=== PATIENT | female | born 1945 | race Caucasian/White ===

== ENCOUNTER 2016-07-29 21:39 | Emergency (ER) | payer MEDICARE ==
[2016-07-29 21:46] VITALS: BP 137/77; PULSE 101; RESP 19; O2SAT 95
--- NOTE | 2016-07-29 22:04 | ED.REPORT ---
HPI-Neurologic Deficit Date of Service Jul 29, 2016 ED Provider: Ryan Agudelo MD The patient is a 71 year old female w/ a hx of multiple strokes and MS who presents to the ED due to trouble talking for the past 3 hours. She is accompanied by her two daughters who report that she was repeating the same phrases over and over again to questions. She was having different emotional responses that were contrary to the question asked. She was having difficulty coming up with specific words. She has been sleeping excessively and complaining of a constant headache. Patient confirms cough. She denies fever, shaking, chills, nausea, vomiting, dysuria or any other symptoms. Patient says that nothing is wrong with her, she is just "tired." Nursing Notes Stated Complaint: HEADACHE, CONFUSION Chief Complaint: Stroke Symptoms Nursing Notes Reviewed: Yes Allergies: Coded Allergies: hydromorphone (Verified Allergy, Mild, 07/29/16) Scheduled Cephalexin (Cephalexin) 500 Mg Capsule 500 MG PO QID General Time Seen by Provider: 22:15 Chief Complaint Other (change in speech) Hx Obtained From: Patient, Daughter Arrived By: Walk-in Sudden in Onset?: Yes Onset Occurred: 1 - 4 hours ago Symptom Duration: Since onset Progression Since Onset: Gradually worsening Severity: Current: No pain currently Recent Healthcare: No recent doctor visit, No recent hospitalization Similar Sx Previous: No Risk Factors Risk Notes: extraocular movements intact NIH Stroke Scale Level of Consciousness: Alert and responsive (0) Ask Month & Age: Both questions right (0) Open/Close Eyes/Hand Principal Solutions Architect: Performs both tasks (0) Horizontal EO Movements: None (0) Visual Lopez: No visual loss (0) Facial Palsy: Normal symmetry (0) Right Arm Motor Drift (10s): No drift 10 sec (0) Left Arm Motor Drift (10s): No drift 10 sec (0) Right Leg Motor Drift (5s): No drift 5 sec (0) Left Leg Motor Drift (5s): No drift 5 sec (0) Limb Ataxia FNF/Heel-Cary: No ataxia (0) Sensation (Arms/Legs/Face): Pinprick less sharp (1) Language Aphasia: Loss fluency ID matls (1) Dysarthria: No dysarthria, normal (0) Extinction/Inattention: No exctinct/inattent (0) NIHSS Score: 0 Time NIHSS Performed: 22:18 Date NIHSS Performed: Jul 29, 2016 Past Medical History Past Medical History MS Reports: Stroke Past Surgical History broken ankle in 2016 Smoking History Unknown if Ever Smoker Social History Other Social History: Lives with children Ambulatory Status Walker Review of Systems Constitutional: Reports: Lethargy, Denies: Chills, Fever Respiratory: Reports: Non-productive cough GI: Denies: Nausea, Vomiting Neurologic: Reports: Headache, Slurred speech Complete sys rev & neg: except as marked. Male: Denies Dysuria Physical Exam Initial Vital Signs Vital Signs (First) Date Time Temp Pulse Resp B/P Pulse Ox O2 Delivery O2 Flow Rate FiO2 07/29/16 21:46 37.1 101 19 137/77 95 Room Air Initial VS: Reviewed ENT: Mucous membranes moist, Conjunctiva normal, No scleral icterus Neck: Supple, Non-tender, Full range of motion Abdomen / GI: Soft, Non-tender, No guarding, No rebound, No distention Back: No CVA tenderness Extremities: Vascular intact, Neuro intact, No swelling, No tenderness Skin: Warm, Dry, No cyanosis Psychiatric: Mood/affect normal, Behavior normal, Normal thought content General/Constitutional: Awake, Alert, Cooperative, Not toxic appearing Head / Eyes: Atraumatic, Normocephalic, PERRL, EOMI Respiratory / Chest: Atraumatic, Breath sounds NL, Breath sounds = bilat, No respiratory distress, No rales, No rhonchi, No wheezing, No retractions Cardiovascular: Heart rate NL, Regular rhythm, Heart sounds NL, No gallop, No murmurs, No rubs Neurologic: Oriented X3, Speech NL, No motor deficits, No sensory deficits, Reflexes equal bilat Interpretation & Diagnostics Lab Results Interpretation Result Diagram: 07/29/16215107/29/16 215 Test 07/29/16 21:52 07/29/16 21:57 07/29/16 23:50 White Blood Count 7.6th/mm3 (3.8-10.1) Red Blood Count 5.35mil/mm3 (3.90-5.20) Hemoglobin 15.5g/dL (12.0-15.6) Hematocrit 47.4% (35.0-46.0) Mean Corpuscular Volume 88.6fL (81-100) Mean Corpuscular Hemoglobin 29.0pg (27.0-35.0) Mean Corpuscular Hemoglobin Concent 32.7% (32.0-37.0) Red Cell Distribution Width 15.5% (12.3-15.4) Platelet Count 335bil/L (150-400) Neutrophils (%) (Auto) 57.6% (40-74) Lymphocytes (%) (Auto) 31.3% (14-46) Monocytes (%) (Auto) 8.0% (4-12) Eosinophils (%) (Auto) 2.2% (0-5) Basophils (%) (Auto) 0.8% (0-3) Sodium Level 145mEq/L (134-144) Potassium Level 4.2mEq/L (3.5-5.2) Chloride Level 103mEq/L (97-108) Carbon Dioxide Level 28mmol/L (18-29) Blood Urea Nitrogen 25mg/dL (8-27) Creatinine 0.64mg/dL (0.57-1.00) Estimat Glomerular Filtration Rate 132mL/min (>59) Glucose Level 102mg/dL (60-99) Calcium Level 10.0mg/dL (8.5-10.1) Total Bilirubin 0.2mg/dL (0.0-1.2) Aspartate Amino Transf (AST/SGOT) 21U/L (0-50) Alanine Aminotransferase (ALT/SGPT) 31U/L (0-32) Alkaline Phosphatase 89U/L (25-165) Total Protein 7.1g/dL (6.4-8.4) Albumin 4.5g/dL (3.4-5.0) Hold Purple Top Tube Received (Received) Hold Blue Top Tube Received (Received) Hold Red Top Tube Received (Received) Hold Gallagher Top Tube Received (Received) Hold [place] Top Tube Received (Received) Urine Color Yellow (YELLOW) Urine Appearance Slightly cloudy Urine pH 6.0 (5.0-8.0) Urine Specific [place] 1.025 (1.003-1.035) Urine Protein Negativemg/dL (NEG,TRACE) Urine Glucose (UA) Negativemg/dL (NEGATIVE) Urine Ketones Negativemg/dL (NEGATIVE) Urine Occult Blood Trace (NEGATIVE) Urine Nitrite Positive (NEGATIVE) Urine Bilirubin Negative (NEGATIVE) Urine Urobilinogen Normalmg/dL (NORMAL) Urine Leukocyte Esterase Small (NEGATIVE) Urine RBC 0-2/hpf (0-2) Urine WBC 11-50/hpf (0-5) Urine Epithelial Cells Occasional/hpf (NONE-MOD) Urine Crystals None seen (NONE SEEN) Urine Bacteria Many/hpf (NONE-FEW) Urine Hyaline Casts None/lpf (NONE) Urine Granular Casts None seen (NONE SEEN) Urine Waxy Casts None seen (NONE SEEN) Urine Red Blood Cell Casts None seen (NONE SEEN) Urine White Blood Cell Casts None seen (NONE SEEN) Urine Mucus None seen (None Seen) Urine Trichomonas None seen (NONE SEEN) Urine Yeast None (NONE SEEN) Urinalysis Comment None Urine Culture Reflexed Indicated Re-Eval/Medical Decision Re-Evaluation/Progress : Time of Eval: 23:57 Patient Status: Condition unchanged Re-Evaluation/Progress Note: Pt rechecked. Informed pt of brain CT results which do not show any acute findings. Still waiting on labs. Consultation : Call Returned at: 23:22 Note: Discussed CT scan with surveillance camera technician radiologist. Indicates that perioventricular white matter may be related to MS. Counseled Regarding: Diagnosis, Lab results, Need for follow-up, When/why to return to ED Discharge & Departure Impression: Primary Impression: Urinary tract infection Urinary tract infection type: site unspecified Hematuria presence: without hematuria Qualified Code: N39.0 - Urinary tract infection, site not specified Disposition: Home Discharge Condition All VS Reviewed: Yes Condition: Stable Additional Instructions: Emergency department evaluation today including CT brain scan and labs. There are some slight changes on your CT scan that could be due to MS. Your urine test shows that you have a urinary tract infection. I will start you on a course of antibiotics. There are no other concerning results or acute findings. Follow up with your primary care physician as needed. Return to the Emergency department for fevers, shaking chills, frequent vomiting increased confusion. Jakee Attestation Portion of this note were transcribed by Halie Ott. I, Dr. Agudelo, personally performed the history, physical exam, and medical decision-making: I reviewed and confirmed the accuracy for the information in the transcribed note. Signed by: barbara Vazquez, 07/30/16 0100 Ryan Agudelo MD Jul 29, 2016 22:04 Halie Ott Jul 29, 2016 22:28
[2016-07-29 22:39] VITALS: BP 138/76; PULSE 3; PULSE 93; RESP 15; O2SAT 96
[2016-07-29 23:11] LABS: EOSINOPHILS % (AUTO) 2.2 % (0-5); Mean Corpuscular Volume 88.6 fL (81-100); NEUTROPHILS % (AUTO) 57.6 % (40-74); Platelet Count 335 bil/L (150-400)
[2016-07-29 23:12] LABS: BASOPHILS % (AUTO) 0.8 % (0-3)
[2016-07-30 00:05] LABS: COLOR,URINE YELLOW (YELLOW)
[2016-07-30 00:06] LABS: APPEARANCE,URINE SLIGHTLY CLOUDY (CLEAR,HAZY); OCCULT BLOOD,URINE TRACE (NEGATIVE); UROBILINOGEN,URINE NORMAL (NORMAL)
[2016-07-30] MEDS ORDERED: cefTRIAXone Inj 2,000 MG in Dextrose 5% Minibag Plus 50 ML IV ONE (00:30)
[2016-07-30] MEDS ORDERED: CEPH500C PO (00:44)
[2016-07-30 01:27] VITALS: BP 142/78; PULSE 91; RESP 18; O2SAT 96
[2016-07-30 01:32] VITALS: BP 142/78; PULSE 91; RESP 18; O2SAT 96
--- NOTE | 2016-07-30 09:04 | DRSVH ---
PROCEDURE: CT BRAIN WITHOUT CONTRAST ([id number]) INDICATIONS: CONFUSION TECHNIQUE: Noncontrast 4.5 mm thick angled axial sections acquired from the foramen magnum to the vertex, with c oronal reformats. COMPARISON: None. FINDINGS: Image quality: Excellent. CSF spaces: Basal cisterns are patent. No extra-axial fluid collections. The ventricles are symmet delia in size and shape. Brain: No intracranial bleeds or masses. There is moderate cerebral volume loss with resultant vent ricular and sulcal prominence. There are multiple foci of hypodensity in the periventricular matter. There is intracranial internal carotid artery atherosclerosis. Skull and face: Calvarium and visualized facial bones appear intact, without suspicious lesions. Sinuses: Visualized sinuses and mastoids are clear. IMPRESSION: 1. Multiple foci of hypodensity in the periventricular white matter. Differential diagnoses include s ubacute or old infarcts versus a demyelinating process such as multiple sclerosis. Recommend clinical correlation. If clinical symptoms persist or clinical suspicion for pathology is high, MRI is sugge sted for further evaluation. 2. Moderate cerebral volume loss. No significant discrepancy with the night warehouse selector radiology preliminary report. Dictated by: Palak Earl M.D. on 07/30/2016 at 8:58 Approved by: Palak Earl M.D. on 07/30/2016 at 9:03
== END 2016-07-30 01:32 | disposition home or self-care (01) ==
LOC: SED 21:39
DX: N39.0 Urinary tract infection, site not specified (principal); B96.20 Unspecified Escherichia coli [E. coli] as the cause of diseases classified elsewhere; G35 Multiple sclerosis; Z86.73 Personal history of transient ischemic attack (TIA), and cerebral infarction without residual deficits; Z88.5 Allergy status to narcotic agent
CPT/HCPCS: 36415; 70450; 80053; 81000; 85025; 87086; 87088; 87186; 96365; 99285; J0696